=== PATIENT | male | born 2000 | race African-American/Black ===

== ENCOUNTER 2022-01-06 14:12 | Emergency (ER) | payer OTHER, SELFPAY ==
[2022-01-06] MEDS ORDERED: Ibuprofen 200 MG TAB ONE (14:57)
== END 2022-01-06 16:38 | disposition home or self-care (01) ==
LOC: CSHERS 14:12
DX: S62.305A Unspecified fracture of fourth metacarpal bone, left hand, initial encounter for closed fracture (principal); D61.9 Aplastic anemia, unspecified; W22.8XXA Striking against or struck by other objects, initial encounter; Y93.67 Activity, basketball
CPT/HCPCS: 29125